=== PATIENT | female | born 1960 ===

== ENCOUNTER 2018-09-27 14:13 | Emergency (ER) | payer OTHER ==
[2018-09-27 14:30] VITALS: BP 133/84
--- NOTE | 2018-09-27 14:46 | UC ---
Minor Trauma HPI - HPI Summary HPI Summary: 58 yo female was walking on slope on [facility]. Conditions this AM very icey. Slipped and landed on buttock. Has sternal pain only after fall. Pain worsened with using arms or taking a deep breath in. Denies dyspnea - History of Current Complaint Chief Complaint: UCChestPain Stated Complaint: CHEST MUSCLE COMPLAINT Time Seen by Provider: 09/27/18 14:40 Hx Obtained From: Patient Onset/Duration: Sudden Onset, Lasting Hours Onset Of Pain: Immediate Severity Initially: Moderate Severity Currently: Moderate Pain Intensity: 6 Pain Scale Used: 0-10 Numeric Mechanism Of Injury: Fall From A Standing Position Aggravating Factor(s): Deep Breaths, Movement Alleviating Factor(s): Rest Associated Signs And Symptoms: Negative: Loss Of Consciousness, Ecchymosis, Swelling Body - Head: 1 - pain - Risk Factors Penetrating Injury Risk Factors: Negative - Allergies/Home Medications Allergies/Adverse Reactions: Allergies Allergy/AdvReac Type Severity Reaction Status Date / Time Penicillins Allergy Rash Verified 09/27/18 14:30 Home Medications: Home Medications Fentimine 1 tab PO DAILY 09/27/18 [History Confirmed 09/27/18] PMH/Surg Hx/FS Hx/Imm Hx Previously Healthy: Yes GI/ History: Kidney Stones - Surgical History Surgical History: None - Family History Known Family History: Positive: Hypertension - Social History Alcohol Use: Occasionally Substance Use Type: None Smoking Status (MU): Never Smoked Tobacco Review of Systems All Other Systems Reviewed And Are Negative: Yes Constitutional: Positive: Negative Skin: Positive: Negative Eyes: Positive: Negative ENT: Positive: Negative Respiratory: Positive: Negative Cardiovascular: Positive: Chest Pain Gastrointestinal: Positive: Negative Genitourinary: Positive: Negative Motor: Positive: Negative Neurovascular: Positive: Negative Musculoskeletal: Positive: Negative Neurological: Positive: Negative Psychological: Positive: Negative Physical Exam Triage Information Reviewed: Yes Appearance: Well-Appearing, No Pain Distress, Well-Nourished Vital Signs: Initial Vital Signs Temp 99.2 F 09/27/18 14:24 Pulse 85 09/27/18 14:24 Resp 18 09/27/18 14:24 BP 133/84 09/27/18 14:24 Pulse Ox 98 09/27/18 14:24 Vital Signs Reviewed: Yes Eyes: Positive: Conjunctiva Clear ENT: Positive: Hearing grossly normal. Negative: Nasal congestion, Nasal drainage, Trismus, Muffled voice, Hoarse voice Neck: Positive: Supple, Nontender, No Lymphadenopathy Respiratory: Positive: Lungs clear, Normal breath sounds, No respiratory distress, No accessory muscle use. Negative: Chest non-tender Cardiovascular: Positive: RRR, No Murmur, Pulses Normal Abdomen Description: Positive: Nontender Musculoskeletal: Positive: ROM Intact, No Edema Neurological: Positive: Alert Psychological Exam: Normal Skin Exam: Normal Diagnostics - Radiology No standard instances Radiology Interpretation Completed By: ED Physician Summary of Radiographic Findings: compression fx sternum Minor Trauma Course/Dx - Differential Dx/Diagnosis Provider Diagnosis: Sternal fracture Discharge - Sign-Out/Discharge Documenting (check all that apply): Patient Departure All imaging exams completed and their final reports reviewed: No - Discharge Plan Condition: Stable Disposition: HOME Patient Education Materials: Rib Fracture (ED) Referrals: Blaine Nina MD [Primary Care Provider] - 2 Weeks Additional Instructions: we treat sternal fractures as rib fractures advil as directed offical xr report pending at time of discharge I will call you only if the radiologist does not suspect a fracture - Billing Disposition and Condition Condition: STABLE Disposition: Home
--- NOTE | 2018-09-27 20:08 | UC ---
- EKG/XRAY/CT Xray Comments: wet read correct Course/Dx - Diagnoses Provider Diagnoses: Sternal fracture Discharge - Sign-Out/Discharge Documenting (check all that apply): Post-Discharge Follow Up All imaging exams completed and their final reports reviewed: Yes - Discharge Plan Condition: Stable Disposition: HOME Patient Education Materials: Rib Fracture (ED) Referrals: Blaine Nina MD [Primary Care Provider] - 2 Weeks Additional Instructions: we treat sternal fractures as rib fractures advil as directed offical xr report pending at time of discharge I will call you only if the radiologist does not suspect a fracture - Billing Disposition and Condition Condition: STABLE Disposition: Home
== END 2018-09-27 16:06 | disposition home or self-care (01) ==
LOC: UCEAST 14:13
DX: S22.20XA Unspecified fracture of sternum, initial encounter for closed fracture (principal); W00.0XXA Fall on same level due to ice and snow, initial encounter; Y93.01 Activity, walking, marching and hiking; Y92.214 College as the place of occurrence of the external cause
CPT/HCPCS: 71120; 99201; G0463